=== PATIENT | male | born 1995 ===

== ENCOUNTER 2021-11-03 02:02 | Emergency (ER) | payer SELFPAY ==
--- OUTSIDE RECORDS SUMMARY | 2021-11-03 02:06 | XMS REPORT | Continuity of Care Document ---
:1995 Author Organization [facility] t Address [address] [place] [address] Care Team Providers Name Role Phone [facility] Primary Care Physician Unavailable CARROLL Attending Clinician Unavailable LOUIE STEVENS Attending Clinician Unavailable Louie Stevens DO Attending Clinician CARROLL Admitting Clinician Unavailable Payers Payer Name Policy Type Policy Number Effective Date Expiration Date [facility] [place] PENDING PENDING 2021-01-10 00:00:00 Problems This patient has no known problems. Allergies, Adverse Reactions, Alerts Allergy Allergy Status Severity Reaction(s) Onset Inactive Treating Comm ents Source Name Type Date Date Clinician Unable DA Active U 2020-03 [facility] to 04-28 Assess 00:00: 00 codeine DA Active U Rash 2020-03 [facility] 04-28 00:00: 00 CODEINE DRUG Active Dizziness 2020-03 [facility] 1-12 ity of 00:00: [place] 00 Medical Branch Codeine Propensi Active Dizziness 2020-03 Univ ers ty to 12 ity of adverse 00:00: [place] reaction 00 Medical s Branch codeine DA Active U Hives [facility] 8-03 00:00: 00 codeine DA [facility] 00 NO KNOWN Drug Active Univers ALLERGIE Class ity of S [facility] Social History Social Habit Start Date Stop Date Quantity Comments Source Exposure to Not sure [facility] SARS-CoV-2 (event) Medica l Branch Sex Assigned At [birth year] [facility] 00:00:00 00:00:00 Medical Branch Smoking Status Start Date Stop Date Source Unknown if ever smoked [facility] Medications This patient has no known medications. Immunizations Ordered Filled Immunization Date Status Comments [facility] e Immunization Name Name PPD (TB) 2002-12-11 Completed [facility] 00:00:00 [facility] Vital Signs Vital Name Observation Time Observation Value Comments Source Systolic blood 2021-01-10 15:29:00 158 mm[Hg] [facility]iver [facility] Diastolic blood 2021-01-10 15:29:00 94 mm[Hg] [facility] Heart rate 2021-01-10 15:29:00 101 /min [facility] Body temperature 2021-01-10 15:29:00 36.78 [facility] Respiratory rate 2021-01-10 15:29:00 18 /min [facility] Body weight 2021-01-10 15:29:00 136.079 kg [facility] Oxygen saturation in 2021-01-10 15:29:00 98 /min [facility] Arterial blood by [facility] Pulse oximetry Branch 02 Sat by Pulse 2020-04-02 19:10:17 97 /min Oximetry Body Mass Index 2020-04-02 19:10:17 42.1 Height 2020-04-02 19:10:17 180.34\S\71 Pulse Rate 2020-04-02 19:10:17 106 /min Respiratory Rate 2020-04-02 19:10:17 18 /min Temperature 2020-04-02 19:10:17 36.8\S\98.2 Weight 2020-04-02 19:10:17 117999.895\S\4832 Weight Measurement 2020-04-02 19:10:17 Estimated by Method Patient Respiratory 2020-04-02 19:10:17 No respiratory distress /min Respiratory 2020-04-02 18:29:56 No respiratory distress /min 02 Sat by Pulse 2020-04-02 18:29:56 97 /min Oximetry Body Mass Index 2020-04-02 18:29:56 42.1 Height 2020-04-02 18:29:56 180.34\S\71 Pulse Rate 2020-04-02 18:29:56 106 /min Respiratory Rate 2020-04-02 18:29:56 18 /min Temperature 2020-04-02 18:29:56 36.8\S\98.2 Weight 2020-04-02 18:29:56 495723.895\S\4832 Weight Measurement 2020-04-02 18:29:56 Estimated by Method Patient Respiratory 2020-04-02 18:29:25 No respiratory distress /min 02 Sat by Pulse 2020-04-02 18:29:25 97 /min Oximetry Body Mass Index 2020-04-02 18:29:25 42.1 Height 2020-04-02 18:29:25 180.34\S\71 Pulse Rate 2020-04-02 18:29:25 106 /min Respiratory Rate 2020-04-02 18:29:25 18 /min Temperature 2020-04-02 18:29:25 36.8\S\98.2 Weight 2020-04-02 18:29:25 842467.895\S\4832 Weight Measurement 2020-04-02 18:29:25 Estimated by Method Patient Respiratory 2020-04-02 16:30:32 No respiratory distress /min 02 Sat by Pulse 2020-04-02 16:30:32 97 /min Oximetry Body Mass Index 2020-04-02 16:30:32 42.1 Height 2020-04-02 16:30:32 180.34\S\71 Pulse Rate 2020-04-02 16:30:32 106 /min Respiratory Rate 2020-04-02 16:30:32 18 /min Temperature 2020-04-02 16:30:32 36.8\S\98.2 Weight 2020-04-02 16:30:32 302274.895\S\4832 Weight Measurement 2020-04-02 16:30:32 Estimated by Method Patient Respiratory 2020-04-02 16:00:18 No respiratory distress /min 02 Sat by Pulse 2020-04-02 16:00:18 97 /min Oximetry Body Mass Index 2020-04-02 16:00:18 42.1 Height 2020-04-02 16:00:18 180.34\S\71 Pulse Rate 2020-04-02 16:00:18 106 /min Respiratory Rate 2020-04-02 16:00:18 18 /min Temperature 2020-04-02 16:00:18 36.8\S\98.2 Weight 2020-04-02 16:00:18 078670.895\S\4832 Weight Measurement 2020-04-02 16:00:18 Estimated by Method Patient 02 Sat by Pulse 2020-04-02 15:13:14 97 /min Oximetry Body Mass Index 2020-04-02 15:13:14 42.1 Height 2020-04-02 15:13:14 180.34\S\71 Pulse Rate 2020-04-02 15:13:14 106 /min Respiratory Rate 2020-04-02 15:13:14 18 /min Temperature 2020-04-02 15:13:14 36.8\S\98.2 Weight 2020-04-02 15:13:14 481275.895\S\4832 Weight Measurement 2020-04-02 15:13:14 Estimated by Method Patient 02 Sat by Pulse 2020-04-02 15:11:41 97 /min Oximetry Body Mass Index 2020-04-02 15:11:41 42.1 Height 2020-04-02 15:11:41 180.34\S\71 Pulse Rate 2020-04-02 15:11:41 106 /min Respiratory Rate 2020-04-02 15:11:41 18 /min Temperature 2020-04-02 15:11:41 36.8\S\98.2 Weight 2020-04-02 15:11:41 318487.895\S\4832 Weight Measurement 2020-04-02 15:11:41 Estimated by Method Patient WEIGHT 2020-04-02 15:07:00 136.520770 kg HEIGHT 2020-04-02 15:07:00 180.34 cm Procedures Procedure Date / Time Performed Performing Clinician [facility] e NOTICE OF PRIVACY 2021-01-10 15:25:17 Doctor Unassigned, No Univ [facility] PRACTICES Name Medical Branch Encounters Start End Encounter Admission Attending Care Care Encounter Source Date/Time Date/Time Type Type Clinicians Facility Department ID 2021-02-25 Inpatient [facility] [id number] [facility] 13:20:00 49 2020-10-01 Inpatient [facility] [id number] [facility] 14:41:00 66 2020-10-01 Inpatient [facility] [id number] [facility] 14:41:00 66 2020-04-02 Inpatient [facility] [id number] [facility] 14:03:00 77 2021-09-09 2021-09-09 Outpatient [facility] [address] 02:47:00 02:47:00 H 0712 da [facility] Outre h Program 2021-02-25 2021-02-25 Emergency [facility] [id number] [facility] 13:29:00 13:29:00 49 2021-01-10 2021-01-10 Emergency X [facility] ERT [id number] Univers 09:31:00 10:11:00 LOUIE simon [facility] 2021-01-10 2021-01-10 Emergency , [facility] [id number] Univers 09:31:00 10:11:00 Louie BAZAN [id number] i [facility] [id number] [facility] [id number] [place] [address] Branch 2020-04-02 2020-04-02 Emergency [facility] [id number] [facility] 14:03:00 14:03:00 77 Results Test Description Test Time Test Comments Results Result Comments Source UA, Urinalysis Macroscopic 2021-02-25 14:25:00 Test Item Value Reference Range Interpretation Comme nts Color,Urine (test code = UCOL) Yellow Yellow Clarity,Urine (test code = UCLAR) Clear Clear PH,Urine (test code = UPH.XX) 6.0 5.5-8.5 Specific Stodd[place],Urine (test code = USG) 1.030 1.005-1.030 N Blood,Urine (test code = UBLD) Negative cells/uL Negative Protein,Urine (test code = UPRO) Negative mg/dL Negative Glucose,Urine (UA) (test code = UGLU) Negative mg/dL Negative Ketones,Urine (test code = UKET) Negative mg/dL Negative Nitrate,Urine (test code = UNIT) Negative Negative Bilirubin,Urine (test code = UBIL) Negative mg/dL Negative Urobilinogen,Urine (test code = UURO) 0.2 mg/dL Negative Leukocyte Esterase,Urine (test code = ULEU) Negative cells/uL Negat destin Drug Screen,[id number] 14:25:00 Test Item Value Reference Range Interpretation Comments PCP Phencyclidine Screen,Urine (test Negative Negative code = PCPU) Amphetamine Screen,Urine (test code Negative Negative = AMPU) Methadone Screen,Urine (test code = Negative Negative METHU) Opiate Screen,Urine (test code = Negative Negative UOPIS) Barbituates Screen,Urine (test code Negative Negative = BARBU) Benzodiazepines Screen,Urine (test Negative Negative code = UBENZS) Cocaine Screen,Urine (test code = Negative Negative UCOCS) Cannabinoid Screen,Urine (test code Positive Negative A = UTHCS) Propoxyphene Screen, Urine (test Negative Negative code = UPROP) Comprehensive Metabolic [id number] 14:10:00 Test Item Value Reference Range Interpretation Comments SODIUM (test code = NA) 140.0 mmol/L 136.0-145.0 N Potassium,K (test code = K) 4.7 mmol/L 3.0-5.1 N Chloride (test code = CL) 110 mmol/L 98-107 H Carbon Dioxide (test code = 25 mmol/L 20-31 N CO2) Anion Gap (test code = GAP) 5 mmol/L 5-15 N Blood Urea Nitrogen (test code 10 mg/dL 9-23 N = BUN) Creatinine (test code = CREATT) 0.71 mg/dL 0.55-1.02 N Creatinine Clr Calc Pharmacy 334.18 mL/min (test code = CRCLPHA) Estimated GFR ( Mary > 60 mL/min/1.73m2 (test code = EGFRAA) Estimated GFR (Non Afr Mary > 60 mL/min/1.73m2 (test code = EGFRNAA) BUN/Creatinine Ratio (test code 14 ratio 10-20 N = BCRATIO) Glucose (test code = GLU) 122 mg/dL 74-106 H Osmolality,Calculated (test 289.5 code = OSMOC) Calcium (test code = CA) 9.3 mg/dL 8.3-10.6 N Bilirubin,Total (test code = 0.3 mg/dL 0.2-1.1 N BILIT) Aspartate Amino Transferase 10 U/L 0-34 N (test code = AST) Alanine Aminotransferase (test 18 U/L 10-49 N code = ALT) Total Protein (test code = TP) 7.1 g/dL 5.7-8.2 N Albumin Level (test code = ALB) 4.4 g/dL 3.2-4.8 N Globulin (test code = GLOB) 2.7 mg/dL 2.3-3.5 N Albumin/Globulin Ratio (test 1.6 ratio 0.8-2.0 N code = AGRATIO) Alkaline Phosphatase (test code 92 U/L 46-116 N = ALP) Ethanol [id number] 14:10:00 Test Item Value Reference Range Interpretation Comments Ethanol (test code < 3 mg/dL The pharm acological = ETOH) response to blo od alcohol levels mayvary from individual to i ndividual. The fatal jaimee ntrationhas been reported t o be >400mg/dL. Complete Blood Count Auto [id number] 14:10:00 Test Item Value Reference Range Interpretation Comments White Blood Count (test code = 10.2 x10 3/uL 4.4-10.5 N WBCT) Red Blood Count (test code = 5.32 x10 6/uL 4.10-5.70 N RBC) Hemoglobin (test code = HGBT) 16.4 g/dL 13.4-17.4 N Hematocrit (test code = HCTT) 49.9 % 38.7-52.0 N Mean Corpuscular Volume (test 93.80 fL 80.00-100.00 N code = MCV) Mean Corpuscular Hemoglobin 30.8 pg 27.0-32.5 N (test code = MCH) Mean Corpuscular HGB Conc 32.90 g/dL 32.00-37.50 N (test code = MCHC) RDW Coefficient of Variation 13.6 % 11.5-14.5 N (test code = RDWCV) Platelet Count (test code = 277.0 x10 3/uL 140.0-440.0 N PLTT) Mean Platelet Volume (test 11.5 fL code = MPV) Immature Granulocytes % (Auto) 0.4 % 0.0-5.0 N (test code = IMMGRAN%) Neutrophils % (Auto) (test 65.9 % 36.0-70.0 N code = NE%) Lymphocytes % (Auto) (test 24.7 % 12.0-44.0 N code = LY%) Monocytes % (Auto) (test code 6.1 % 0.0-11.0 N = MO%) Eosinophils % (Auto) (test 2.3 % 0.0-7.0 N code = EO%) Basophils % (Auto) (test code 0.6 % 0.0-2.0 N = BA%) Immature Granulocytes # (Auto) 0.04 x10 3/uL (test code = IMMGRAN#) Neutrophils # (Auto) (test 6.7 x10 3/uL 1.6-7.4 N code = NE#) Lymphocytes # (Auto) (test 2.52 x10 3/uL 0.50-4.60 N code = LY#) Monocytes # (Auto) (test code 0.62 x10 3/uL 0.00-1.20 N = MO#) Eosinophils # (Auto) (test 0.23 x10 3/uL 0.00-0.74 N code = EO#) Basophils # (Auto) (test code 0.06 x10 3/uL 0.00-0.21 N = BA#) nRBC Abs (test code = NRBCA) 0 nRBC Pct (test code = NRBCP) 0 % Coronavirus PCR, COVID19 [id number] 14:03:00 Test Item Value Reference Range Interpretation Comments Coronavirus PCR, For use under Emergency COVID19 Rapid (test Use Authorization (EUA) code = SARSCOV2) only. Coronavirus PCR, Reference Range: COVID19 Rapid (test Negative code = PKZFDDP52.1) SARS-CoV-2 PCR Result: Negative by RT-PCR (test code = SARS-CoV-2 PCR Result:) COVID-19 Status: AsymptomaticDrug Screen,[id number] 15:25:00 Test Item Value Reference Range Interpretation Comments PCP Phencyclidine Screen,Urine (test Negative Negative code = PCPU) Amphetamine Screen,Urine (test code Negative Negative = AMPU) Methadone Screen,Urine (test code = Negative Negative METHU) Opiate Screen,Urine (test code = Negative Negative UOPIS) Barbituates Screen,Urine (test code Negative Negative = BARBU) Benzodiazepines Screen,Urine (test Negative Negative code = UBENZS) Cocaine Screen,Urine (test code = Negative Negative UCOCS) Cannabinoid Screen,Urine (test code Positive Negative A = UTHCS) Propoxyphene Screen, Urine (test Negative Negative code = UPROP) Complete Blood Count Auto [id number] 15:03:00 Test Item Value Reference Range Interpretation Comments White Blood Count (test code = 15.3 x10 3/uL 4.4-10.5 H WBCT) Red Blood Count (test code = 5.33 x10 6/uL 4.10-5.70 N RBC) Hemoglobin (test code = HGBT) 16.4 g/dL 13.4-17.4 N Hematocrit (test code = HCTT) 50.6 % 38.7-52.0 N Mean Corpuscular Volume (test 94.90 fL 80.00-100.00 N code = MCV) Mean Corpuscular Hemoglobin 30.8 pg 27.0-32.5 N (test code = MCH) Mean Corpuscular HGB Conc 32.40 g/dL 32.00-37.50 N (test code = MCHC) RDW Coefficient of Variation 13.2 % 11.5-14.5 N (test code = RDWCV) Platelet Count (test code = 269.0 x10 3/uL 140.0-440.0 N PLTT) Mean Platelet Volume (test 11.5 fL code = MPV) Immature Granulocytes % (Auto) 0.5 % 0.0-5.0 N (test code = IMMGRAN%) Neutrophils % (Auto) (test 83.7 % 36.0-70.0 H code = NE%) Lymphocytes % (Auto) (test 10.7 % 12.0-44.0 L code = LY%) Monocytes % (Auto) (test code 4.3 % 0.0-11.0 N = MO%) Eosinophils % (Auto) (test 0.5 % 0.0-7.0 N code = EO%) Basophils % (Auto) (test code 0.3 % 0.0-2.0 N = BA%) Immature Granulocytes # (Auto) 0.07 x10 3/uL (test code = IMMGRAN#) Neutrophils # (Auto) (test 12.8 x10 3/uL 1.6-7.4 H code = NE#) Lymphocytes # (Auto) (test 1.64 x10 3/uL 0.50-4.60 N code = LY#) Monocytes # (Auto) (test code 0.66 x10 3/uL 0.00-1.20 N = MO#) Eosinophils # (Auto) (test 0.08 x10 3/uL 0.00-0.74 N code = EO#) Basophils # (Auto) (test code 0.04 x10 3/uL 0.00-0.21 N = BA#) nRBC Abs (test code = NRBCA) 0 nRBC Pct (test code = NRBCP) 0 % Comprehensive Metabolic [id number] 15:03:00 Test Item Value Reference Range Interpretation Comments SODIUM (test code = NA) 139.0 mmol/L 136.0-145.0 N Potassium,K (test code = K) 5.0 mmol/L 3.0-5.1 N Chloride (test code = CL) 114 mmol/L 98-107 H Carbon Dioxide (test code = 22 mmol/L 20-31 N CO2) Anion Gap (test code = GAP) 3 mmol/L 5-15 L Blood Urea Nitrogen (test code 10 mg/dL 9-23 N = BUN) Creatinine (test code = CREATT) 0.78 mg/dL 0.55-1.02 N Creatinine Clr Calc Pharmacy 202.25 mL/min (test code = CRCLPHA) Estimated GFR ( Mary > 60 mL/min/1.73m2 (test code = EGFRAA) Estimated GFR (Non Afr Mary > 60 mL/min/1.73m2 (test code = EGFRNAA) BUN/Creatinine Ratio (test code 13 ratio 10-20 N = BCRATIO) Glucose (test code = GLU) 101 mg/dL 74-106 N Osmolality,Calculated (test 286.5 code = OSMOC) Calcium (test code = CA) 9.8 mg/dL 8.3-10.6 N Bilirubin,Total (test code = 0.3 mg/dL 0.2-1.1 N BILIT) Aspartate Amino Transferase 19 U/L 0-34 N (test code = AST) Alanine Aminotransferase (test 27 U/L 10-49 N code = ALT) Total Protein (test code = TP) 7.7 g/dL 5.7-8.2 N Albumin Level (test code = ALB) 4.9 g/dL 3.2-4.8 H Globulin (test code = GLOB) 2.8 mg/dL 2.3-3.5 N Albumin/Globulin Ratio (test 1.8 ratio 0.8-2.0 N code = AGRATIO) Alkaline Phosphatase (test code 99 U/L 46-116 N = ALP) Ethanol [id number] 15:03:00 Test Item Value Reference Range Interpretation Comments Ethanol (test code = ETOH) < 3 mg/dL Coronavirus PCR, COVID19 [id number] 14:58:00 Test Item Value Reference Range Interpretation Comments Coronavirus PCR, For use under Emergency COVID19 Rapid (test Use Authorization (EUA) code = SARSCOV2) only. Coronavirus PCR, Reference Range: COVID19 Rapid (test Negative code = AFJIIQF01.1) SARS-CoV-2 PCR Result: Negative by PCR (test code = SARS-CoV-2 PCR Result:) COVID-19 Status: MmzjjwomsvcrWwsg-OgE-2/FLU A/B RSV [id number] 16:05:00 Test Item Value Reference Range Interpretation Comments Sars-CoV-2/FLU A/B For use under Emergency RSV PCR (test code = Use Authorization (EUA) SARSFLURSVPCR) only. Sars-CoV-2/FLU A/B Reference Range: RSV PCR (test code = Negative SARSFLURSVPCR1.1) Influenza A PCR: Negative by Nucleic Acid (test code = Amplification Influenza A PCR:) Influenza B PCR: Negative by Nucleic Acid (test code = Amplification Influenza B PCR:) RSV PCR Result: (test Negative by Nucleic Acid code = RSV PCR Amplification Result:) SARS-CoV-2 PCR Negative by PCR Result: (test code = SARS-CoV-2 PCR Result:) Complete Blood Count Auto [id number] 16:00:00 Test Item Value Reference Range Interpretation Comments White Blood Count (test code = 12.7 x10 3/uL 4.4-10.5 H WBCT) Red Blood Count (test code = 5.15 x10 6/uL 4.10-5.70 N RBC) Hemoglobin (test code = HGBT) 15.9 g/dL 13.4-17.4 N Hematocrit (test code = HCTT) 50.3 % 38.7-52.0 N Mean Corpuscular Volume (test 97.70 fL 80.00-100.00 N code = MCV) Mean Corpuscular Hemoglobin 30.9 pg 27.0-32.5 N (test code = MCH) Mean Corpuscular HGB Conc 31.60 g/dL 32.00-37.50 L (test code = MCHC) RDW Coefficient of Variation 13.0 % 11.5-14.5 N (test code = RDWCV) Platelet Count (test code = 302.0 x10 3/uL 140.0-440.0 N PLTT) Mean Platelet Volume (test 11.7 fL code = MPV) Immature Granulocytes % (Auto) 0.4 % 0.0-5.0 N (test code = IMMGRAN%) Neutrophils % (Auto) (test 68.6 % 36.0-70.0 N code = NE%) Lymphocytes % (Auto) (test 22.8 % 12.0-44.0 N code = LY%) Monocytes % (Auto) (test code 6.1 % 0.0-11.0 N = MO%) Eosinophils % (Auto) (test 1.5 % 0.0-7.0 N code = EO%) Basophils % (Auto) (test code 0.6 % 0.0-2.0 N = BA%) Immature Granulocytes # (Auto) 0.05 x10 3/uL (test code = IMMGRAN#) Neutrophils # (Auto) (test 8.7 x10 3/uL 1.6-7.4 H code = NE#) Lymphocytes # (Auto) (test 2.89 x10 3/uL 0.50-4.60 N code = LY#) Monocytes # (Auto) (test code 0.77 x10 3/uL 0.00-1.20 N = MO#) Eosinophils # (Auto) (test 0.19 x10 3/uL 0.00-0.74 N code = EO#) Basophils # (Auto) (test code 0.07 x10 3/uL 0.00-0.21 N = BA#) nRBC Abs (test code = NRBCA) 0 nRBC Pct (test code = NRBCP) 0 % Comprehensive Metabolic [id number] 16:00:00 Test Item Value Reference Range Interpretation Comments SODIUM (test code = NA) 139.0 mmol/L 136.0-145.0 N Potassium,K (test code = K) 4.4 mmol/L 3.0-5.1 N Chloride (test code = CL) 106 mmol/L 98-107 N Carbon Dioxide (test code = 23 mmol/L 20-31 N CO2) Anion Gap (test code = GAP) 10 mmol/L 5-15 N Blood Urea Nitrogen (test code 12 mg/dL 9-23 N = BUN) Creatinine (test code = CREATT) 0.83 mg/dL 0.55-1.02 N Creatinine Clr Calc Pharmacy 189.04 mL/min (test code = CRCLPHA) Estimated GFR ( Mary > 60 mL/min/1.73m2 (test code = EGFRAA) Estimated GFR (Non Afr Mary > 60 mL/min/1.73m2 (test code = EGFRNAA) BUN/Creatinine Ratio (test code 14 ratio 10-20 N = BCRATIO) Glucose (test code = GLU) 108 mg/dL 74-106 H Osmolality,Calculated (test 288.2 code = OSMOC) Calcium (test code = CA) 9.4 mg/dL 8.3-10.6 N Bilirubin,Total (test code = 0.2 mg/dL 0.2-1.1 N BILIT) Aspartate Amino Transferase 21 U/L 0-34 N (test code = AST) Alanine Aminotransferase (test 26 U/L 10-49 N code = ALT) Total Protein (test code = TP) 7.2 g/dL 5.7-8.2 N Albumin Level (test code = ALB) 4.9 g/dL 3.2-4.8 H Globulin (test code = GLOB) 2.3 mg/dL 2.3-3.5 N Albumin/Globulin Ratio (test 2.1 ratio 0.8-2.0 H code = AGRATIO) Alkaline Phosphatase (test code 98 U/L 46-116 N = ALP) Ethanol [id number] 16:00:00 Test Item Value Reference Range Interpretation Comments Ethanol (test code = ETOH) 7 mg/dL Drug Screen,[id number] 15:45:00 Test Item Value Reference Range Interpretation Comments PCP Phencyclidine Negative Negative Screen,Urine (test code = PCPU) Amphetamine Positive Negative A Confirmation by GC/MS Screen,Urine (test code not routinely = AMPU) performed. Ifconfirmation is required, an or nilay must be placed. Methadone Screen,Urine Negative Negative (test code = METHU) Opiate Screen,Urine Negative Negative (test code = UOPIS) Barbituates Negative Negative Screen,Urine (test code = BARBU) Benzodiazepines Negative Negative Screen,Urine (test code = UBENZS) Cocaine Screen,Urine Negative Negative (test code = UCOCS) Cannabinoid Positive Negative A Screen,Urine (test code = UTHCS) Propoxyphene Screen, Negative Negative Urine (test code = UPROP) UA, Urinalysis Rflx Cult/[id number] 15:45:00 Test Item Value Reference Range Interpretation Comments Color,Urine (test code = Yellow Y UCOL) Clarity,Urine (test code = Slightly Cloudy Clear A UCLAR) PH,Urine (test code = UPH.XX) 5.5 5.5-8.5 Specific Stoddard,Urine (test 1.030 1.005-1.030 N code = USG) Blood,Urine (test code = Trace cells/uL Negative A UBLD) Protein,Urine (test code = Trace mg/dL Negative A UPRO) Glucose,Urine (UA) (test code 100 mg/dL Negative A = UGLU) Ketones,Urine (test code = Trace mg/dL Negative A UKET) Nitrate,Urine (test code = Negative Negative UNIT) Bilirubin,Urine (test code = Negative mg/dL Negative UBIL) Urobilinogen,Urine (test code 0.2 mg/dL Negative = UURO) Leukocyte Esterase,Urine Trace cells/uL Negative A (test code = ULEU) Urine [id number] 15:45:00 Test Item Value Reference Range Interpretation Comments RBC,Urine (test code = URBC.XX) 11-19 /HPF None Seen A WBC,Urine (test code = UWBC.XX) 2-5 /HPF None Seen Squamous Epithelial Cell,Urine 6-10 /HPF None Seen A (test code = USQEPI.XX) Bacteria,Urine (test code = UBACT) 1+ /HPF None Seen A Mucus,Urine (test code = UMUC) 1+ /LPF None Seen A
[2021-11-03 03:11] LABS: Urine Blood Negative (Negative); Urine Glucose Negative (Negative); Urine Protein Negative (Negative); Urine Specific Gravity >=1.030 (1.005-1.030); Urine pH 5.5 (5.0-7.0)
--- NOTE | 2021-11-03 03:13 | ER ---
Nurse's Notes [facility] Name: Munir Hayes Age: 26 yrs Sex: Male : 1995 Arrival Date: 11/03/2021 Time: 02:03 Bed 8 Private MD: Diagnosis: Dysuria Presentation: 11/03 02:04 Chief complaint: EMS states: Headache , sore throat and burning sensation on urination tw5 since a week. Coronavirus screen: Vaccine status: Patient reports being unvaccinated. Ebola Screen: No symptoms or risks identified at this time. Initial Sepsis Screen: Does the patient meet any 2 criteria? No. Patient's initial sepsis screen is negative. Does the patient have a suspected source of infection? No. Patient's initial sepsis screen is negative. Risk Assessment: Do you want to hurt yourself or someone else? Patient reports no desire to harm self or others. Onset of symptoms was October 28, 2021. 02:04 Method Of Arrival: EMS: [facility] tw5 02:04 Acuity: DORIS 3 tw5 Triage Assessment: 02:07 General: Appears in no apparent distress. Behavior is appropriate for age. Pain: tw5 Complains of pain in headache Pain currently is 3 out of 10 on a pain scale. at worst was 8 out of 10 on a pain scale. level that patient reports is acceptable is 5 out of 10 on a pain scale. Quality of pain is described as throbbing, Pain began 1 week ago. EENT:. Neuro: Level of Consciousness is awake, alert, Oriented to person, place, time, situation. Respiratory: Respiratory effort is even, unlabored, Respiratory pattern is regular, symmetrical. : Reports burning with urination. Historical: - Allergies: 02:07 Codeine; tw5 - PMHx: 02:07 Depression; tw5 - Immunization history:: Client reports having NOT received the Covid vaccine. - Social history:: Smoking status: Patient reports the use of cigarette tobacco products, smokes two packs cigarettes per day. - Family history:: not pertinent. Screenin:09 Abuse screen: Denies threats or abuse. Nutritional screening: No deficits noted. tw5 Tuberculosis screening: No symptoms or risk factors identified. Fall Risk None identified. Assessment: 03:25 Reassessment: Patient states feeling better. Patient states symptoms have improved. ke1 Vital Signs: 02:04 BP 154 / 92; Pulse 98; Resp 17; Temp 99.2; Pulse Ox 99% on R/A; Weight 136.08 kg; tw5 Height 5 ft. 1 in. (154.94 cm); Pain 3/10; 02:04 Body Mass Index 56.68 (136.08 kg, 154.94 cm) tw5 ED Course: 02:03 Patient arrived in ED. [facility] 02:03 Fani Rojo is Primary Nurse. 5 02:07 Triage completed. tw5 02:07 Gregg Saxena MD is Attending Physician. [facility] 02:09 Arm band placed on. tw5 02:09 Bed in low position. Call light in reach. tw5 03:26 No provider procedures requiring assistance completed. Patient did not have IV access ke1 during this emergency room visit. Administered Medications: 03:19 Drug: Zithromax (azithromycin) 1 grams Route: PO; ke1 03:26 Follow up: Response: Medication administered at discharge. ke1 03:20 Drug: Rocephin (cefTRIAXone) 1 grams Route: IM; Site: right deltoid; ke1 03:26 Follow up: Response: Medication administered at discharge. ke1 Medication: 03:27 VIS not applicable for this client. ke1 Outcome: 03:12 Discharge ordered by . [facility] 03:26 Discharged to home ambulatory. ke1 03:26 Condition: good 03:26 Discharge instructions given to patient. 03:27 Patient left the ED. ke1 Signatures: Gregg Saxena MD MD cha Martinez, [facility] Fani Rojo [facility] Emanuel Headley RN RN ke1
--- NOTE | 2021-11-03 03:13 | EDPHYS ---
Physician Documentation [facility] Name: Munir Hayes Age: 26 yrs Sex: Male : 1995 Arrival Date: 11/03/2021 Time: 02:03 Bed 8 Private MD: LÁZARO Physician Gregg Saxena HPI: 11/03 03:09 This 26 yrs old Male presents to ER via EMS with complaints of Urinary sofía Problem. 03:09 The patient presents with tenderness, urinary symptoms, dribbling of urine, dysuria, sofía urinary frequency. Onset: The symptoms/episode began/occurred 3 day(s) ago. Modifying factors: The symptoms are alleviated by nothing, the symptoms are aggravated by nothing. Associated signs and symptoms: Pertinent positives: fever. Severity of symptoms: At their worst the symptoms were mild, in the emergency department the symptoms are unchanged. The patient has not experienced similar symptoms in the past. Historical: - Allergies: 02:07 Codeine; tw5 - PMHx: 02:07 Depression; tw5 - Immunization history:: Client reports having NOT received the Covid vaccine. - Social history:: Smoking status: Patient reports the use of cigarette tobacco products, smokes two packs cigarettes per day. - Family history:: not pertinent. ROS: 03:09 Constitutional: Negative for fever, chills, and weight loss, Eyes: Negative for injury, sofía pain, redness, and discharge, ENT: Negative for injury, pain, and discharge, Neck: Negative for injury, pain, and swelling, Cardiovascular: Negative for chest pain, palpitations, and edema, Respiratory: Negative for shortness of breath, cough, wheezing, and pleuritic chest pain, Abdomen/GI: Negative for abdominal pain, nausea, vomiting, diarrhea, and constipation, Back: Negative for injury and pain, MS/Extremity: Negative for injury and deformity, Skin: Negative for injury, rash, and discoloration, Neuro: Negative for headache, weakness, numbness, tingling, and seizure, Psych: Negative for depression, anxiety, suicide ideation, homicidal ideation, and hallucinations, Allergy/Immunology: Negative for hives, rash, and allergies, Endocrine: Negative for neck swelling, polydipsia, polyuria, polyphagia, and marked weight changes, Hematologic/Lymphatic: Negative for swollen nodes, abnormal bleeding, and unusual bruising. 03:09 : Positive for injury or acute deformity, flank pain, hematuria, burning with urination. Exam: 03:09 Constitutional: This is a well developed, well nourished patient who is awake, alert, sofía and in no acute distress. Head/Face: Normocephalic, atraumatic. Eyes: Pupils equal round and reactive to light, extra-ocular motions intact. Lids and lashes normal. Conjunctiva and sclera are non-icteric and not injected. Cornea within normal limits. Periorbital areas with no swelling, redness, or edema. ENT: Nares patent. No nasal discharge, no septal abnormalities noted. Tympanic membranes are normal and external auditory canals are clear. Oropharynx with no redness, swelling, or masses, exudates, or evidence of obstruction, uvula midline. Mucous membranes moist. Neck: Trachea midline, no thyromegaly or masses palpated, and no cervical lymphadenopathy. Supple, full range of motion without nuchal rigidity, or vertebral point tenderness. No Meningismus. Chest/axilla: Normal chest wall appearance and motion. Nontender with no deformity. No lesions are appreciated. Cardiovascular: Regular rate and rhythm with a normal S1 and S2. No gallops, murmurs, or rubs. Normal PMI, no JVD. No pulse deficits. Respiratory: Lungs have equal breath sounds bilaterally, clear to auscultation and percussion. No rales, rhonchi or wheezes noted. No increased work of breathing, no retractions or nasal flaring. Abdomen/GI: Soft, non-tender, with normal bowel sounds. No distension or tympany. No guarding or rebound. No evidence of tenderness throughout. Back: No spinal tenderness. No costovertebral tenderness. Full range of motion. Skin: Warm, dry with normal turgor. Normal color with no rashes, no lesions, and no evidence of cellulitis. MS/ Extremity: Pulses equal, no cyanosis. Neurovascular intact. Full, normal range of motion. Neuro: Awake and alert, GCS 15, oriented to person, place, time, and situation. Cranial nerves II-XII grossly intact. Motor strength 5/5 in all extremities. Sensory grossly intact. Cerebellar exam normal. Normal gait. Psych: Awake, alert, with orientation to person, place and time. Behavior, mood, and affect are within normal limits. 03:09 : CVA tenderness, is absent, Male external genitalia: normal, Bladder: is normal, Sexual behavior: the patient is sexually active, and reports multiple partners. Vital Signs: 02:04 BP 154 / 92; Pulse 98; Resp 17; Temp 99.2; Pulse Ox 99% on R/A; Weight 136.08 kg; tw5 Height 5 ft. 1 in. (154.94 cm); Pain 3/10; 02:04 Body Mass Index 56.68 (136.08 kg, 154.94 cm) tw5 MDM: 02:07 Patient medically screened. [facility] 11/03 03:04 Order name: Urine Culture [facility] 11/03 03:11 Order name: Urine Dipstick-Ancillary [facility] 11/03 03:04 Order name: Urine Dipstick-Ancillary (obtain specimen); Complete Time: 03:20 sofía Administered Medications: 03:19 Drug: Zithromax (azithromycin) 1 grams Route: PO; ke1 03:26 Follow up: Response: Medication administered at discharge. ke1 03:20 Drug: Rocephin (cefTRIAXone) 1 grams Route: IM; Site: right deltoid; ke1 03:26 Follow up: Response: Medication administered at discharge. ke1 Disposition Summary: 11/03/21 03:12 Discharge Ordered Location: Home [facility] Problem: new [facility] Symptoms: have improved sofía Condition: Stable sofía Diagnosis - Dysuria sofía Followup: sofía - With: Private Physician - When: 2 - 3 days - Reason: Recheck today's complaints, Continuance of care, Re-evaluation by your physician Discharge Instructions: - Discharge Summary Sheet sofía - Dysuria sofía Forms: - Medication Reconciliation Form [facility] - Thank You Letter sofía - Antibiotic Education sofía - Prescription Opioid Use sofía Prescriptions: - Doxycycline Hyclate 100 mg Oral Tablet - take 1 tablet by ORAL route every 12 hours; 20 tablet; Refills: 0, Product sofía Selection Permitted Signatures: Dispatcher [employer] EDGregg Obando MD MD cha Wood, Tiffany tw5 Emanuel Headley RN RN ke1
[2021-11-03] MEDS ORDERED: CEFTRIAXONE 1000 MG/VIAL ONE (03:21)
[2021-11-03] MEDS ORDERED: AZITHROMYCIN 250 MG TAB ONE (03:22)
[2021-11-03] MEDS ORDERED: WATER FOR INJ,STERILE 10 ML ONE (03:24)
[2021-11-03 04:09] VITALS: BP 154/92; TEMP 99.2; O2SAT 99
== END 2021-11-03 03:27 | disposition home or self-care (01) ==
LOC: ER 02:02
DX: R30.0 Dysuria (principal); F17.210 Nicotine dependence, cigarettes, uncomplicated; Z88.5 Allergy status to narcotic agent
CPT/HCPCS: 81003; 87086; 87088; 96372; 99283

== ENCOUNTER 2021-12-15 06:57 | Emergency (ER) | payer SELFPAY ==
--- OUTSIDE RECORDS SUMMARY | 2021-12-15 07:14 | XMS REPORT | Continuity of Care Document ---
:1995 Author Organization [facility] t Address [address] [place] [address] Care Team Providers Name Role Phone [facility] Primary Care Physician Unavailable CARROLL Attending Clinician Unavailable LOUIE STEVENS Attending Clinician Unavailable Louie Stevens DO Attending Clinician CARROLL Admitting Clinician Unavailable Payers Payer Name Policy Type Policy Number Effective Date Expiration Date S maribell MEDICAID PENDING PENDING 2021 00:00:00 Problems This patient has no known problems. Allergies, Adverse Reactions, Alerts Allergy Allergy Status Severity Reaction(s) Onset Inactive Treating Comm ents Source Name Type Date Date Clinician Unable DA Active U 2020-03 [facility] to 04-28 Assess 00:00: 00 codeine DA Active U Rash 2020-03 [facility] 04-28 00:00: 00 Codeine Propensi Active Dizziness 2020-03 Univ ers ty to 03-12 ity of adverse 00:00: [place] reaction 00 Medical s Branch CODEINE DRUG Active Dizziness 2020-03 Univer s INGREDI 03-12 ity of 00:00: [place] [id number] Medical Branch codeine DA Active U Hives [facility] 8 00:00: 00 codeine DA Active U Hives [facility] 2 00:00: 00 NO KNOWN Drug Active Univers ALLERGIE Class ity of S [facility] [place] Social History Social Habit Start Date Stop Date Quantity Comments Source Exposure to Not sure [facility] SARS-CoV-2 (event) Medica l Branch Sex Assigned At [birth year] [facility] 00:00:00 00:00:00 Medical Branch Smoking Status Start Date Stop Date Source Unknown if ever smoked [facility] Medications This patient has no known medications. Immunizations Ordered Filled Immunization Date Status Comments [facility] e Immunization Name Name PPD (TB) 2002-12-11 Completed [facility] 00:00:00 [facility] Vital Signs Vital Name Observation Time Observation Value Comments Source Systolic blood 2021-01-10 15:29:00 158 mm[Hg] [facility] Diastolic blood 2021-01-10 15:29:00 94 mm[Hg[facility] Heart rate 2021-01-10 15:29:00 101 /min [facility] Body temperature 2021-01-10 15:29:00 36.78 [facility] Respiratory rate 2021-01-10 15:29:00 18 /[facility] Body weight 2021-01-10 15:29:00 136.079 kg [facility] Oxygen saturation in 2021-01-10 15:29:00 98 /min [facility] Arterial blood by [facility] Pulse oximetry Branch 02 Sat by Pulse 2020-04-02 19:10:17 97 /min Oximetry Body Mass Index 2020-04-02 19:10:17 42.1 Height 2020-04-02 19:10:17 180.34\S\71 Pulse Rate 2020-04-02 19:10:17 106 /min Respiratory Rate 2020-04-02 19:10:17 18 /min Temperature 2020-04-02 19:10:17 36.8\S\98.2 Weight 2020-04-02 19:10:17 670416.895\S\4832 Weight Measurement 2020-04-02 19:10:17 Estimated by Method Patient Respiratory 2020-04-02 19:10:17 No respiratory distress /min Respiratory 2020-04-02 18:29:56 No respiratory distress /min 02 Sat by Pulse 2020-04-02 18:29:56 97 /min Oximetry Body Mass Index 2020-04-02 18:29:56 42.1 Height 2020-04-02 18:29:56 180.34\S\71 Pulse Rate 2020-04-02 18:29:56 106 /min Respiratory Rate 2020-04-02 18:29:56 18 /min Temperature 2020-04-02 18:29:56 36.8\S\98.2 Weight 2020-04-02 18:29:56 682233.895\S\4832 Weight Measurement 2020-04-02 18:29:56 Estimated by Method Patient Respiratory 2020-04-02 18:29:25 No respiratory distress /min 02 Sat by Pulse 2020-04-02 18:29:25 97 /min Oximetry Body Mass Index 2020-04-02 18:29:25 42.1 Height 2020-04-02 18:29:25 180.34\S\71 Pulse Rate 2020-04-02 18:29:25 106 /min Respiratory Rate 2020-04-02 18:29:25 18 /min Temperature 2020-04-02 18:29:25 36.8\S\98.2 Weight 2020-04-02 18:29:25 768337.895\S\4832 Weight Measurement 2020-04-02 18:29:25 Estimated by Method Patient Respiratory 2020-04-02 16:30:32 No respiratory distress /min 02 Sat by Pulse 2020-04-02 16:30:32 97 /min Oximetry Body Mass Index 2020-04-02 16:30:32 42.1 Height 2020-04-02 16:30:32 180.34\S\71 Pulse Rate 2020-04-02 16:30:32 106 /min Respiratory Rate 2020-04-02 16:30:32 18 /min Temperature 2020-04-02 16:30:32 36.8\S\98.2 Weight 2020-04-02 16:30:32 180034.895\S\4832 Weight Measurement 2020-04-02 16:30:32 Estimated by Method Patient Respiratory 2020-04-02 16:00:18 No respiratory distress /min 02 Sat by Pulse 2020-04-02 16:00:18 97 /min Oximetry Body Mass Index 2020-04-02 16:00:18 42.1 Height 2020-04-02 16:00:18 180.34\S\71 Pulse Rate 2020-04-02 16:00:18 106 /min Respiratory Rate 2020-04-02 16:00:18 18 /min Temperature 2020-04-02 16:00:18 36.8\S\98.2 Weight 2020-04-02 16:00:18 133573.895\S\4832 Weight Measurement 2020-04-02 16:00:18 Estimated by Method Patient 02 Sat by Pulse 2020-04-02 15:13:14 97 /min Oximetry Body Mass Index 2020-04-02 15:13:14 42.1 Height 2020-04-02 15:13:14 180.34\S\71 Pulse Rate 2020-04-02 15:13:14 106 /min Respiratory Rate 2020-04-02 15:13:14 18 /min Temperature 2020-04-02 15:13:14 36.8\S\98.2 Weight 2020-04-02 15:13:14 148819.895\S\4832 Weight Measurement 2020-04-02 15:13:14 Estimated by Method Patient 02 Sat by Pulse 2020-04-02 15:11:41 97 /min Oximetry Body Mass Index 2020-04-02 15:11:41 42.1 Height 2020-04-02 15:11:41 180.34\S\71 Pulse Rate 2020-04-02 15:11:41 106 /min Respiratory Rate 2020-04-02 15:11:41 18 /min Temperature 2020-04-02 15:11:41 36.8\S\98.2 Weight 2020-04-02 15:11:41 446221.895\S\4832 Weight Measurement 2020-04-02 15:11:41 Estimated by Method Patient WEIGHT 2020-04-02 15:07:00 136.771843 kg HEIGHT 2020-04-02 15:07:00 180.34 cm Procedures Procedure Date / Time Performed Performing Clinician [facility] e NOTICE OF PRIVACY 2021-01-10 15:25:17 Doctor Unassigned, No Univ [facility] PRACTICES Name Medical Branch Encounters Start End Encounter Admission Attending Care Care Encounter Source Date/Time Date/Time Type Type Clinicians Facility Department ID 2021-02-25 Inpatient [facility] [id number] [facility] 13:20:00 49 2020-10-01 Inpatient [facility] [id number] [facility] 14:41:00 66 2020-10-01 Inpatient [facility] [id number] [facility] 14:41:00 66 2020-04-02 Inpatient [facility] [id number] [facility] 14:03:00 77 2021-09-09 2021-09-09 Outpatient [facility] [id number] [place] 02:47:00 02:47:00 H 0712 da [facility] Outre h Program 2021-02-25 2021-02-25 Emergency [facility] [id number] [facility] 13:29:00 13:29:00 49 2021-01-10 2021-01-10 Emergency X [facility] ERT [id number] Univers 09:31:00 10:11:00 LOUIE simon [facility] 2021-01-10 2021-01-10 Emergency [facility] [id number] Univers 09:31:00 10:11:00 Louie BAZAN [id number] i [facility] [id number] [facility] [id number] [place] [id number] Branch 2020-04-02 2020-04-02 Emergency [facility] [id number] [facility] 14:03:00 14:03:00 77 Results Test Description Test Time Test Comments Results Result Comments Source UA, Urinalysis Macroscopic 2021-02-25 14:25:00 Test Item Value Reference Range Interpretation Comme nts Color,Urine (test code = UCOL) Yellow Yellow Clarity,Urine (test code = UCLAR) Clear Clear PH,Urine (test code = UPH.XX) 6.0 5.5-8.5 Specific [place],Urine (test code = USG) 1.030 1.005-1.030 N [...] = ULEU) Negative cells/uL Negat destin Drug Screen,[id number] 14:25:00 Test Item Value Reference Range Interpretation [...] Negative Negative code = UPROP) Comprehensive Metabolic [id number] 14:10:00 Test Item Value Reference Range Interpretation [...] 92 U/L 46-116 N = ALP) Ethanol [id number] 14:10:00 Test Item Value Reference Range Interpretation Comments Ethanol (test code < 3 mg/dL The pharm acological = ETOH) response to blo od alcohol levels mayvary from individual to i ndividual. The fatal jaimee ntrationhas been reported t o be >400mg/dL. Complete Blood Count Auto [id number] 14:10:00 Test Item Value Reference Range Interpretation [...] = NRBCP) 0 % Coronavirus PCR, COVID19 [id number] 14:03:00 Test Item Value Reference Range Interpretation Comments Coronavirus PCR, For use under Emergency COVID19 Rapid (test Use Authorization (EUA) code = SARSCOV2) only. Coronavirus PCR, Reference Range: COVID19 Rapid (test Negative code = OXBTCQC22.1) SARS-CoV-2 PCR Result: Negative by RT-PCR (test code = SARS-CoV-2 PCR Result:) COVID-19 Status: AsymptomaticDrug Screen,[id number] 15:25:00 Test Item Value Reference Range Interpretation [...] code = UPROP) Complete Blood Count Auto [id number] 15:03:00 Test Item Value Reference Range Interpretation [...] code = NRBCP) 0 % Comprehensive Metabolic [id number] 15:03:00 Test Item Value Reference Range Interpretation [...] 99 U/L 46-116 N = ALP) Ethanol [id number] 15:03:00 Test Item Value Reference Range Interpretation Comments Ethanol (test code = ETOH) < 3 mg/dL Coronavirus PCR, COVID19 [id number] 14:58:00 Test Item Value Reference Range Interpretation Comments Coronavirus PCR, For use under Emergency COVID19 Rapid (test Use Authorization (EUA) code = SARSCOV2) only. Coronavirus PCR, Reference Range: COVID19 Rapid (test Negative code = TOWCMEP86.1) SARS-CoV-2 PCR Result: Negative by PCR (test code = SARS-CoV-2 PCR Result:) COVID-19 Status: [id number]/FLU A/B RSV [id number] 16:05:00 Test Item Value Reference Range Interpretation [...] SARS-CoV-2 PCR Result:) Complete Blood Count Auto [id number] 16:00:00 Test Item Value Reference Range Interpretation [...] code = NRBCP) 0 % Comprehensive Metabolic [id number] 16:00:00 Test Item Value Reference Range Interpretation [...] 98 U/L 46-116 N = ALP) Ethanol [id number] 16:00:00 Test Item Value Reference Range Interpretation Comments Ethanol (test code = ETOH) 7 mg/dL Drug Screen,[id number] 15:45:00 Test Item Value Reference Range Interpretation [...] (test code = UPROP) UA, Urinalysis Rflx Cult/[id number] 15:45:00 Test Item Value Reference Range Interpretation Comments Color,Urine (test code = Yellow Y UCOL) Clarity,Urine (test code = Slightly Cloudy Clear A UCLAR) PH,Urine (test code = UPH.XX) 5.5 5.5-8.5 Specific [place],Urine (test 1.030 1.005-1.030 N code = USG) [...] Negative A (test code = ULEU) Urine [id number] 15:45:00 Test Item Value Reference Range Interpretation [...]
[2021-12-15 07:39] LABS: Absolute Lymphocytes (CBC) 2.4 K/uL (0.7-4.9); Hematocrit 45.3 % (39.6-49.0); Lymphocytes % 25.3 % (15.3-44.8); MCV 90.6 fL (80-100); MPV 8.9 fL (7.6-11.3)
[2021-12-15 07:50] LABS: Potassium 4.3 mmol/L (3.5-5.1); Troponin High Sensitivity 6.1 pg/mL (<58.9)
--- NOTE | 2021-12-15 08:09 | RAD REPORT ---
EXAM DESCRIPTION: [facility] Single View12/15/2021 7:38 am CLINICAL HISTORY: Chest pain COMPARISON: none FINDINGS: The lungs appear clear of acute infiltrate. The heart is normal size IMPRESSION: No acute abnormalities displayed
--- NOTE | 2021-12-15 10:10 | ER ---
Nurse's Notes [facility] Name: Munir Hayes Age: 26 yrs Sex: Male : 1995 Arrival Date: 12/15/2021 Time: 07:01 Bed 17 Private MD: Diagnosis: Chest pain, unspecified;Anxiety disorder, unspecified Presentation: 12/15 07:06 Chief complaint: EMS states: Toned out for CP, on arrival patient states that no longer ke1 having CP but feeling like he is being attacked by demons. 07:06 Method Of Arrival: EMS: [facility] ke1 07:10 Coronavirus screen: Vaccine status: Patient reports being unvaccinated. Ebola Screen: tp1 Patient denies exposure to infectious person. Patient denies travel to an Ebola-affected area in the 21 days before illness onset. 07:10 Initial Sepsis Screen: Does the patient meet any 2 criteria? No. Patient's initial tp1 sepsis screen is negative. Does the patient have a suspected source of infection? No. Patient's initial sepsis screen is negative. Risk Assessment: Do you want to hurt yourself or someone else? Patient reports no desire to harm self or others. Onset of symptoms was December 15, 2021. 07:10 Acuity: DORIS 3 tp1 Triage Assessment: 07:10 General: Appears in no apparent distress. comfortable, unkempt, Behavior is calm, tp1 cooperative. Pain: Denies pain. EENT: No signs and/or symptoms were reported regarding the EENT system. Neuro: Level of Consciousness is awake, alert, obeys commands, Oriented to person, place, time, situation, Pupils are Pupil Size: 5. Cardiovascular: Patient's skin is warm and dry. Respiratory: Airway is patent Respiratory effort is even, unlabored. GI: No signs and/or symptoms were reported involving the gastrointestinal system. GI: No signs and/or symptoms were reported involving the gastrointestinal system. Abdomen is round non-distended, Reports nausea. : No signs and/or symptoms were reported regarding the genitourinary system. Derm: Skin is pink, warm \T\ dry. Musculoskeletal: Circulation, motion, and sensation intact. Historical: - Allergies: 07:50 Codeine; tp1 - Home Meds: 07:50 Zoloft Oral [Active]; risperidone oral [Active]; hydroxyzine [Active]; tp1 - PMHx: 07:50 Depression; Schizophrenia; Anxiety; tp1 - Immunization history:: Client reports having NOT received the Covid vaccine. - Social history:: Smoking status: Patient reports the use of cigarette tobacco products, smokes two packs cigarettes per day. Patient uses street drugs, marijuana. Screenin:10 Abuse screen: Denies threats or abuse. Denies injuries from another. Nutritional tp1 screening: No deficits noted. Tuberculosis screening: No symptoms or risk factors identified. Fall Risk No fall in past 12 months (0 pts). No secondary diagnosis (0 pts). IV access (20 points). Ambulatory Aid- None/Bed Rest/Nurse Assist (0 pts). Gait- Normal/Bed Rest/Wheelchair (0 pts) Mental Status- Oriented to own ability (0 pts). Assessment: 07:10 General: see triage assessment . tp1 08:10 Reassessment: Patient appears in no apparent distress at this time. No changes from tp1 previously documented assessment. Patient and/or family updated on plan of care and expected duration. Pain level reassessed. Patient is alert, oriented x 3, equal unlabored respirations, skin warm/dry/pink. Patient denies pain at this time. 09:10 General: Appears in no apparent distress. comfortable, obese, Behavior is calm, kr3 cooperative, Smells of cigarettes . 10:36 Reassessment: No changes from previously documented assessment. Patient and/or family kr3 updated on plan of care and expected duration. Pain level reassessed. Patient is alert, oriented x 3, equal unlabored respirations, skin warm/dry/pink. Vital Signs: 07:10 BP 136 / 96; Pulse 103; Resp 18; Temp 98.6; Pulse Ox 100% on R/A; Weight 135.17 kg; tp1 Height 5 ft. 11 in. (180.34 cm); 09:05 BP 131 / 77; Pulse 101; Resp 18; Pulse Ox 98% on R/A; kr3 10:05 BP 117 / 80; Pulse 73; Resp 18; Pulse Ox 99% on R/A; kr3 10:36 BP 129 / 84; Pulse 83; Resp 18; Pulse Ox 99% on R/A; kr3 07:10 Body Mass Index 41.56 (135.17 kg, 180.34 cm) tp1 ED Course: 07:01 Patient arrived in ED. mm9 07:04 Cathy Fuentes MD is Attending Physician. [email or web address] [email or web address] 07:06 Emanuel Headley RN is Primary Nurse. ke1 07:10 Patient has correct armband on for positive identification. Placed in gown. Bed in low tp1 position. Call light in reach. 07:10 Arm band placed on. tp1 07:25 Inserted saline lock: 22 gauge in right forearm, using aseptic technique. Blood tp1 collected. 07:25 EKG done. tp1 07:38 X-ray completed. Portable x-ray completed in exam room. md2 07:50 Triage completed. tp1 10:22 RAD In Process Unspecified. EDMS 10:30 No provider procedures requiring assistance completed. kr3 10:40 IV discontinued, intact, bleeding controlled, No redness/swelling at site. Pressure kr3 dressing applied. Administered Medications: 10:17 Drug: hydrOXYzine 25 mg Route: PO; kr3 10:39 Follow up: Response: No adverse reaction kr3 Medication: 10:40 VIS not applicable for this client. kr3 Outcome: 10:09 Discharge ordered by . sd2 10:39 Discharged to home ambulatory. kr3 10:39 Condition: stable 10:39 Discharge instructions given to patient, Instructed on discharge instructions, follow up and referral plans. Demonstrated understanding of instructions, follow-up care. 10:41 Patient left the ED. kr3 Signatures: Dispatcher [employer] EDMS Fani Morales RN RN tp1 Emanuel Headley RN RN ke1 Cathy Fuentes MD MD sd2 Radha Fitzgerald RN RN kr3 Marjan Rawls mm9 Madie English Corrections: (The following items were deleted from the chart) 10:38 10:29 BP 117 / 80; Pulse 73bpm; Resp 18bpm; Pulse Ox 99% RA; kr3 kr3
--- NOTE | 2021-12-15 10:10 | EDPHYS ---
Physician Documentation [facility] Name: Munir Hayes Age: 26 yrs Sex: Male : 1995 Arrival Date: 12/15/2021 Time: 07:01 Bed 17 Private MD: ED Physician Cathy Fuentes HPI: 12/15 07:57 This 26 yrs old Male presents to ER via EMS with complaints of chest pain. sd2 08:00 26-year-old male presents with chief complaint via EMS of chest pain. He has a history sd2 of schizophrenia and anxiety and states he forgot to take his medications last night and his anxiety was worse than normal. He does endorse associated shortness of breath and nausea without vomiting or diaphoresis. He has no known prior cardiac history. Patient states his chest pain has now resolved.. Historical: - Allergies: 07:50 Codeine; tp1 - Home Meds: 07:50 Zoloft Oral [Active]; risperidone oral [Active]; hydroxyzine [Active]; tp1 - PMHx: 07:50 Depression; Schizophrenia; Anxiety; tp1 - Immunization history:: Client reports having NOT received the Covid vaccine. - Social history:: Smoking status: Patient reports the use of cigarette tobacco products, smokes two packs cigarettes per day. Patient uses street drugs, marijuana. ROS: 08:00 Constitutional: Negative for fever, chills, and weight loss, Eyes: Negative for injury, sd2 pain, redness, and discharge, Cardiovascular: Positive for chest pain, Negative for palpitations, and edema, Respiratory: Positive for shortness of breath, Negative for cough, wheezing. Abdomen/GI: Negative for abdominal pain, vomiting, diarrhea. Positive for nausea. Back: Negative for injury and pain, MS/Extremity: Negative for injury and deformity, Skin: Negative for injury, rash, and discoloration, Neuro: Negative for headache, numbness and tingling. Exam: 08:00 Constitutional: This is a well developed, well nourished patient who is awake, alert, sd2 and in no acute distress. Head/Face: Normocephalic, atraumatic. Eyes: EOMI, normal conjunctiva bilaterally Chest/axilla: Normal chest wall appearance and motion. Nontender with no deformity. Cardiovascular: Regular rate and rhythm with a normal S1 and S2. No gallops, murmurs, or rubs. 2+ distal pulses. Respiratory: Lungs have equal breath sounds bilaterally, clear to auscultation and percussion. No rales, rhonchi or wheezes noted. No increased work of breathing, no retractions or nasal flaring. Abdomen/GI: Soft, non-tender, with normal bowel sounds. No guarding or rebound. No evidence of tenderness throughout. Skin: Warm, dry with normal turgor. Normal color with no rashes, no lesions, and no evidence of cellulitis. MS/ Extremity: Pulses equal, no cyanosis. Neurovascular intact. Full, normal range of motion. Ambulatory without difficulty. 08:57 ECG was reviewed by the Attending Physician. NSR, rate 97, no STEMI criteria or ST-T sd2 wave changes Vital Signs: 07:10 BP 136 / 96; Pulse 103; Resp 18; Temp 98.6; Pulse Ox 100% on R/A; Weight 135.17 kg; tp1 Height 5 ft. 11 in. (180.34 cm); 09:05 BP 131 / 77; Pulse 101; Resp 18; Pulse Ox 98% on R/A; kr3 10:05 BP 117 / 80; Pulse 73; Resp 18; Pulse Ox 99% on R/A; kr3 10:36 BP 129 / 84; Pulse 83; Resp 18; Pulse Ox 99% on R/A; kr3 07:10 Body Mass Index 41.56 (135.17 kg, 180.34 cm) tp1 MDM: 07:04 Patient medically screened. sd2 08:00 Differential Diagnosis Differential diagnosis includes but is not limited to: ACS, sd2 DVT/PE, pneumothorax, dissection, musculoskeletal, anxiety, anemia, electrolyte abnormality, pneumonia, CHF, COPD among others. Data reviewed: vital signs, nurses notes, EKG. 10:07 Data reviewed: lab test result(s), radiologic studies. Counseling: I had a detailed sd2 discussion with the patient and/or guardian regarding: the historical points, exam findings, and any diagnostic results supporting the discharge/admit diagnosis, lab results, radiology results, the need for outpatient follow up, to return to the emergency department if symptoms worsen or persist or if there are any questions or concerns that arise at home. Medical screen evaluation completed. EMTALA emergency medical condition absent. ED course: Labs and imaging reviewed. Trop neg. EKG with no ischemic changes. Heart score 1. CXR with no acute process. Pt remains CP free. He is comfortable with plan for discharge and outpatient follow up and will resume his home medications for anxiety when he returns home as prescribed. Verbalizes understanding of discharge plan and strict return precautions. . 12/15 07:15 Order name: CBC with Diff sd2 12/15 07:15 Order name: BMP sd2 12/15 07:15 Order name: Troponin High Sensitivity sd2 12/15 07:39 Order name: CBC with Automated Diff EDMS 12/15 07:50 Order name: Basic Metabolic Panel EDMS 12/15 07:50 Order name: Troponin High Sensitivity EDMS 12/15 07:15 Order name: EKG - Nurse/Tech; Complete Time: 07:56 sd2 12/15 07:15 Order name: XRAY Chest (1 view) sd2 12/15 08:09 Order name: RAD EDMS Administered Medications: :17 Drug: hydrOXYzine 25 mg Route: PO; kr3 10:39 Follow up: Response: No adverse reaction kr3 Disposition Summary: 12/15/21 10:09 Discharge Ordered Location: Home sd2 Problem: new sd2 Symptoms: are resolved sd2 Condition: Stable sd2 Diagnosis - Chest pain, unspecified sd2 - Anxiety disorder, unspecified sd2 Followup: sd2 - With: Private Physician - When: 2 - 3 days - Reason: Recheck today's complaints, Continuance of care, Re-evaluation by your physician Discharge Instructions: - Discharge Summary Sheet sd2 - Nonspecific Chest Pain, Adult sd2 - Managing Anxiety, Adult sd2 Forms: - Medication Reconciliation Form sd2 - Thank You Letter sd2 - Antibiotic Education sd2 - Prescription Opioid Use sd2 Signatures: Dispatcher [employer] EDFani Butler RN RN tp1 Cathy Fuentes MD MD sd2 Radha Fitzgerald RN RN kr3
[2021-12-15] MEDS ORDERED: hydrOXYzine HCL 25 MG TAB ONE (10:12)
[2021-12-15 11:30] VITALS: TEMP 98.6
[2021-12-15 11:48] VITALS: O2SAT 99
[2021-12-15 11:50] VITALS: BP 129/84
--- NOTE | 2021-12-16 14:06 | EKG ---
Test Date: 2021-12-15 Test Time: 07:21:59 Core Piler: MEASUREMENT RESULTS: Intervals: Rate: 97 VT: 140 QRSD: 80 QT: 358 QTc: 454 [place]: P: 64 VT: 140 QRS: 23 T: 48 INTERPRETIVE STATEMENTS: Normal sinus rhythm Normal ECG Compared to ECG 01/05/2017 16:46:14 Sinus tachycardia no longer present T-wave abnormality no longer present Electronically Signed On 12-16-21 14:02:35 CDT by Cordell Perez
== END 2021-12-15 10:41 | disposition home or self-care (01) ==
LOC: ER 06:57
DX: R07.9 Chest pain, unspecified (principal); F41.9 Anxiety disorder, unspecified; Z88.6 Allergy status to analgesic agent; F20.9 Schizophrenia, unspecified
CPT/HCPCS: 36415; 71045; 80048; 84484; 85025; 93005; 99284

== ENCOUNTER 2022-02-26 19:43 | Emergency (ER) | payer SELFPAY ==
--- OUTSIDE RECORDS SUMMARY | 2022-02-26 19:47 | XMS REPORT | Continuity of Care Document ---
:1995 Author Organization [facility] t Address [address] [place] [address] Care Team Providers Name Role Phone [facility] Primary Care Physician Unavailable CARROLL Attending Clinician Unavailable LOUIE STEVENS Attending Clinician Unavailable Louie Stevens DO Attending Clinician CARROLL Admitting Clinician Unavailable Payers Payer Name Policy Type Policy Number Effective Date Expiration Date S [facility] MEDICAID PENDING PENDING 2021 00:00:00 Problems This patient has no known problems. Allergies, Adverse Reactions, Alerts Allergy Allergy Status Severity Reaction(s) Onset Inactive Treating Comm ents Source Name Type Date Date Clinician Unable DA Active U 2020-03 [facility] to 04-28 Assess 00:00: 00 codeine DA Active U Rash 2020-03 [facility] 04-28 00:00: 00 CODEINE DRUG Active Dizziness 2020-03 Univer s INGREDI 1-12 ity of 00:00: [place] 00 Medical Branch Codeine Propensi Active Dizziness 2020-03 Univ ers ty to 12 ity of adverse 00:00: [place] reaction Medical s Branch codeine DA Active U Hives [facility] 8 00:00: 00 codeine DA Active U Hives [facility] 2 00:00: 00 NO KNOWN Drug Active Univers ALLERGIE Class ity of S [facility] Social History Social Habit Start Date Stop Date Quantity Comments Source Exposure to Not sure [facility] SARS-CoV-2 (event) Medica l Branch Sex Assigned At [birth year] [facility] 00:00:00 00:00:00 Medical Branch Smoking Status Start Date Stop Date Source Unknown if ever smoked [facility] Medications This patient has no known medications. Immunizations Ordered Filled Immunization Date Status Comments [facility] e Immunization Name Name PPD (TB) 2002-12-11 Completed [facility] 00:00:00 [facility] Vital Signs Vital Name Observation Time Observation Value Comments Source Systolic blood 2021-01-10 15:29:00 158 mm[Hg] Univer [facility] Diastolic blood 2021-01-10 15:29:00 94 mm[Hg] Unive [facility] Heart rate 2021-01-10 15:29:00 101 /min [facility] Body temperature 2021-01-10 15:29:00 36.78 Elisa [facility] Respiratory rate 2021-01-10 15:29:00 18 /min [facility] Body weight 2021-01-10 15:29:00 136.079 kg [facility] Oxygen saturation in 2021-01-10 15:29:00 98 /min [facility] Arterial blood by [facility] Pulse oximetry Branch 02 Sat by Pulse 2020-04-02 19:10:17 97 /min Oximetry Body Mass Index 2020-04-02 19:10:17 42.1 Height 2020-04-02 19:10:17 180.34\S\71 Pulse Rate 2020-04-02 19:10:17 106 /min Respiratory Rate 2020-04-02 19:10:17 18 /min Temperature 2020-04-02 19:10:17 36.8\S\98.2 Weight 2020-04-02 19:10:17 178625.895\S\4832 Weight Measurement 2020-04-02 19:10:17 Estimated by Method Patient Respiratory 2020-04-02 19:10:17 No respiratory distress /min Respiratory 2020-04-02 18:29:56 No respiratory distress /min 02 Sat by Pulse 2020-04-02 18:29:56 97 /min Oximetry Body Mass Index 2020-04-02 18:29:56 42.1 Height 2020-04-02 18:29:56 180.34\S\71 Pulse Rate 2020-04-02 18:29:56 106 /min Respiratory Rate 2020-04-02 18:29:56 18 /min Temperature 2020-04-02 18:29:56 36.8\S\98.2 Weight 2020-04-02 18:29:56 356262.895\S\4832 Weight Measurement 2020-04-02 18:29:56 Estimated by Method Patient Respiratory 2020-04-02 18:29:25 No respiratory distress /min 02 Sat by Pulse 2020-04-02 18:29:25 97 /min Oximetry Body Mass Index 2020-04-02 18:29:25 42.1 Height 2020-04-02 18:29:25 180.34\S\71 Pulse Rate 2020-04-02 18:29:25 106 /min Respiratory Rate 2020-04-02 18:29:25 18 /min Temperature 2020-04-02 18:29:25 36.8\S\98.2 Weight 2020-04-02 18:29:25 533665.895\S\4832 Weight Measurement 2020-04-02 18:29:25 Estimated by Method Patient Respiratory 2020-04-02 16:30:32 No respiratory distress /min 02 Sat by Pulse 2020-04-02 16:30:32 97 /min Oximetry Body Mass Index 2020-04-02 16:30:32 42.1 Height 2020-04-02 16:30:32 180.34\S\71 Pulse Rate 2020-04-02 16:30:32 106 /min Respiratory Rate 2020-04-02 16:30:32 18 /min Temperature 2020-04-02 16:30:32 36.8\S\98.2 Weight 2020-04-02 16:30:32 323247.895\S\4832 Weight Measurement 2020-04-02 16:30:32 Estimated by Method Patient Respiratory 2020-04-02 16:00:18 No respiratory distress /min 02 Sat by Pulse 2020-04-02 16:00:18 97 /min Oximetry Body Mass Index 2020-04-02 16:00:18 42.1 Height 2020-04-02 16:00:18 180.34\S\71 Pulse Rate 2020-04-02 16:00:18 106 /min Respiratory Rate 2020-04-02 16:00:18 18 /min Temperature 2020-04-02 16:00:18 36.8\S\98.2 Weight 2020-04-02 16:00:18 110511.895\S\4832 Weight Measurement 2020-04-02 16:00:18 Estimated by Method Patient 02 Sat by Pulse 2020-04-02 15:13:14 97 /min Oximetry Body Mass Index 2020-04-02 15:13:14 42.1 Height 2020-04-02 15:13:14 180.34\S\71 Pulse Rate 2020-04-02 15:13:14 106 /min Respiratory Rate 2020-04-02 15:13:14 18 /min Temperature 2020-04-02 15:13:14 36.8\S\98.2 Weight 2020-04-02 15:13:14 448344.895\S\4832 Weight Measurement 2020-04-02 15:13:14 Estimated by Method Patient 02 Sat by Pulse 2020-04-02 15:11:41 97 /min Oximetry Body Mass Index 2020-04-02 15:11:41 42.1 Height 2020-04-02 15:11:41 180.34\S\71 Pulse Rate 2020-04-02 15:11:41 106 /min Respiratory Rate 2020-04-02 15:11:41 18 /min Temperature 2020-04-02 15:11:41 36.8\S\98.2 Weight 2020-04-02 15:11:41 000033.895\S\4832 Weight Measurement 2020-04-02 15:11:41 Estimated by Method Patient WEIGHT 2020-04-02 15:07:00 136.154820 kg HEIGHT 2020-04-02 15:07:00 180.34 cm Procedures Procedure Date / Time Performed Performing Clinician [facility] e NOTICE OF PRIVACY 2021-01-10 15:25:17 Doctor Unassigned, No [facility] PRACTICES Name Medical Branch Encounters Start End Encounter Admission Attending Care Care Encounter Source Date/Time Date/Time Type Type Clinicians Facility Department ID 2021-02-25 Inpatient [facility] [id number] [facility] 13:20:00 49 2020-10-01 Inpatient [facility] [id number] [facility] 14:41:00 66 2020-10-01 Inpatient [facility] [id number] [facility] 14:41:00 66 2020-04-02 Inpatient [facility] [id number] [facility] 14:03:00 77 2021-09-09 2021-09-09 Outpatient JUSTINAI_CAROL [facility] [address] [place] 02:47:00 02:47:00 H 0712 da [facility] Outre h Program 2021-02-25 2021-02-25 Emergency [facility] [id number] [facility] 13:29:00 13:29:00 49 2021-01-10 2021-01-10 Emergency X [facility] ERT [id number] Univers 09:31:00 10:11:00 LOUIE simon [facility] 2021-01-10 2021-01-10 Emergency [facility] [id number] Univers 09:31:00 10:11:00 Louie BAZAN [id number] [facility] [id number] [facility] [id number] [place] [id number] Branch 2020-04-02 2020-04-02 Emergency [facility] [id number] [facility] 14:03:00 14:03:00 77 Results Test Description Test Time Test Comments Results Result Comments Source UA, Urinalysis Macroscopic 2021-02-25 14:25:00 Test Item Value Reference Range Interpretation Comme nts Color,Urine (test code = UCOL) Yellow Yellow Clarity,Urine (test code = UCLAR) Clear Clear PH,Urine (test code = UPH.XX) 6.0 5.5-8.5 Specific [place],Urine (test code = USG) 1.030 1.005-1.030 N [...] = ULEU) Negative cells/uL Negat destin Drug Screen,[id number] 14:25:00 Test Item Value Reference Range Interpretation [...] Negative Negative code = UPROP) Comprehensive Metabolic [id number] 14:10:00 Test Item Value Reference Range Interpretation [...] 92 U/L 46-116 N = ALP) Ethanol [id number] 14:10:00 Test Item Value Reference Range Interpretation Comments Ethanol (test code < 3 mg/dL The pharm acological = ETOH) response to blo od alcohol levels mayvary from individual to i ndividual. The fatal jaimee ntrationhas been reported t o be >400mg/dL. Complete Blood Count Auto [id number] 14:10:00 Test Item Value Reference Range Interpretation [...] = NRBCP) 0 % Coronavirus PCR, COVID19 [id number] 14:03:00 Test Item Value Reference Range Interpretation Comments Coronavirus PCR, For use under Emergency COVID19 Rapid (test Use Authorization (EUA) code = SARSCOV2) only. Coronavirus PCR, Reference Range: COVID19 Rapid (test Negative code = WBRUPJF20.1) SARS-CoV-2 PCR Result: Negative by RT-PCR (test code = SARS-CoV-2 PCR Result:) COVID-19 Status: AsymptomaticDrug Screen,[id number] 15:25:00 Test Item Value Reference Range Interpretation [...] code = UPROP) Complete Blood Count Auto [id number] 15:03:00 Test Item Value Reference Range Interpretation [...] code = NRBCP) 0 % Comprehensive Metabolic [id number] 15:03:00 Test Item Value Reference Range Interpretation [...] 99 U/L 46-116 N = ALP) Ethanol [id number] 15:03:00 Test Item Value Reference Range Interpretation Comments Ethanol (test code = ETOH) < 3 mg/dL Coronavirus PCR, COVID19 [id number] 14:58:00 Test Item Value Reference Range Interpretation Comments Coronavirus PCR, For use under Emergency COVID19 Rapid (test Use Authorization (EUA) code = SARSCOV2) only. Coronavirus PCR, Reference Range: COVID19 Rapid (test Negative code = SJOQIDJ03.1) SARS-CoV-2 PCR Result: Negative by PCR (test code = SARS-CoV-2 PCR Result:) COVID-19 Status: [id number]/FLU A/B RSV [id number] 16:05:00 Test Item Value Reference Range Interpretation [...] SARS-CoV-2 PCR Result:) Complete Blood Count Auto [id number] 16:00:00 Test Item Value Reference Range Interpretation [...] code = NRBCP) 0 % Comprehensive Metabolic [id number] 16:00:00 Test Item Value Reference Range Interpretation [...] 98 U/L 46-116 N = ALP) Ethanol [id number] 16:00:00 Test Item Value Reference Range Interpretation Comments Ethanol (test code = ETOH) 7 mg/dL Drug Screen,[id number] 15:45:00 Test Item Value Reference Range Interpretation [...] (test code = UPROP) UA, Urinalysis Rflx Cult/[id number] 15:45:00 Test Item Value Reference Range Interpretation Comments Color,Urine (test code = Yellow Y UCOL) Clarity,Urine (test code = Slightly Cloudy Clear A UCLAR) PH,Urine (test code = UPH.XX) 5.5 5.5-8.5 Specific [place],Urine (test 1.030 1.005-1.030 N code = USG) [...] Negative A (test code = ULEU) Urine [id number] 15:45:00 Test Item Value Reference Range Interpretation [...]
[2022-02-26 20:49] LABS: Urine Blood Negative (Negative); Urine Glucose Negative (Negative); Urine Protein Negative (Negative); Urine Specific Gravity 1.025 (1.005-1.030); Urine pH 5.5 (5.0-7.0)
[2022-02-26 21:00] LABS: Absolute Lymphocytes (CBC) 2.4 K/uL (0.7-4.9); Hematocrit 47.8 % (39.6-49.0); Lymphocytes % 24.5 % (15.3-44.8); MCV 90.5 fL (80-100); MPV 9.3 fL (7.6-11.3); RBC Red Blood Cell Count 5.29 M/uL (4.33-5.43)
[2022-02-26 21:09] LABS: Barbiturates NEGATIVE (NEGATIVE); Benzodiazepines NEGATIVE (NEGATIVE); Cocaine NEGATIVE (NEGATIVE); METHAMPHETAM NEGATIVE (NEGATIVE); Methadone NEGATIVE (NEGATIVE); Opiates NEGATIVE (NEGATIVE); Phencyclidine NEGATIVE (NEGATIVE); THC Cannibis NEGATIVE (NEGATIVE)
[2022-02-26 21:11] LABS: Protime INR 1.21
[2022-02-26 21:18] LABS: ALT/SGPT 33 U/L (16-61); AST/SGOT 11 U/L (15-37); Albumin 3.9 g/dL (3.4-5.0); Alkaline Phosphatase 78 U/L (45-117); BUN Blood Urea Nitrogen 10 mg/dL (7-18); Bicarbonate 26 mmol/L (21-32); Bilirubin Direct < 0.1 mg/dL (0-0.2); Bilirubin Total 0.3 mg/dL (0.2-1.0); Glomerular Filtration Rate 115 ml/min (=/>90); Glucose Level 104 mg/dL (74-106); Potassium 4.3 mmol/L (3.5-5.1); Protein, Total 8.3 g/dL (6.4-8.2); Sodium Level 136 mmol/L (136-145)
--- NOTE | 2022-02-26 21:52 | EDPHYS ---
Physician Documentation [facility] Name: Munir Hayes Age: 26 yrs Sex: Male : 1995 Arrival Date: 02/26/2022 Time: 19:45 Bed 10 Private MD: ED Physician Tamie Sousa HPI: 02/26 20:29 This 26 yrs old Male presents to ER via EMS with complaints of Altered Mental Status. sp3 20:29 26-year-old male with history of schizophrenia, anxiety, depression presents with chief sp3 complaint "I need help at the psychiatric hospital in [facility] told me to come here." Patient states that he has been having hallucinations and hearing voices. He states that when he was talking to his "weed dealer" he was telling me about the illuminati other medieval groups. Denies suicide ideation, homicide ideation, visual hallucinations. Medical [place] is negative and patient has no somatic complaints including headache, neck pain, chest pain, shortness of breath, back pain, abdominal pain, nausea, vomiting, diarrhea, syncope, focal neurodeficit, rash, known travel history, known sick contacts, any other aspects at this time.. Historical: - Allergies: 20:07 Codeine; ll3 - Home Meds: 20:07 Zoloft Oral [Active]; ll3 - PMHx: 20:07 Anxiety; Depression; Schizophrenia; ll3 - Immunization history:: Client reports having NOT received the Covid vaccine. - Social history:: Smoking status: Patient reports the use of cigarette tobacco products, smokes one pack cigarettes per day. ROS: 20:31 Constitutional: Negative for fever, chills, and weight loss, Eyes: Negative for injury, sp3 pain, redness, and discharge, ENT: Negative for injury, pain, and discharge, Neck: Negative for injury, pain, and swelling, Cardiovascular: Negative for chest pain, palpitations, and edema, Respiratory: Negative for shortness of breath, cough, wheezing, and pleuritic chest pain, Abdomen/GI: Negative for abdominal pain, nausea, vomiting, diarrhea, and constipation, Back: Negative for injury and pain, MS/Extremity: Negative for injury and deformity, Skin: Negative for injury, rash, and discoloration, Neuro: Negative for headache, weakness, numbness, tingling, and seizure, Allergy/Immunology: Negative for hives, rash, and allergies, Endocrine: Negative for neck swelling, polydipsia, polyuria, polyphagia, and marked weight changes, Hematologic/Lymphatic: Negative for swollen nodes, abnormal bleeding, and unusual bruising. 20:31 All other systems are negative. Exam: 20:32 Constitutional: This is a well developed, well nourished patient who is awake, alert, sp3 and in no acute distress. Head/Face: Normocephalic, atraumatic. Eyes: Pupils equal round and reactive to light, extra-ocular motions intact. Lids and lashes normal. Conjunctiva and sclera are non-icteric and not injected. Cornea within normal limits. Periorbital areas with no swelling, redness, or edema. Neck: Trachea midline, no thyromegaly or masses palpated, and no cervical lymphadenopathy. Supple, full range of motion without nuchal rigidity, or vertebral point tenderness. No Meningismus. Chest/axilla: Normal chest wall appearance and motion. Nontender with no deformity. No lesions are appreciated. Cardiovascular: Regular rate and rhythm with a normal S1 and S2. No gallops, murmurs, or rubs. Normal PMI, no JVD. No pulse deficits. Respiratory: Lungs have equal breath sounds bilaterally, clear to auscultation and percussion. No rales, rhonchi or wheezes noted. No increased work of breathing, no retractions or nasal flaring. Abdomen/GI: Soft, non-tender, with normal bowel sounds. No distension or tympany. No guarding or rebound. No evidence of tenderness throughout. Back: No spinal tenderness. No costovertebral tenderness. Full range of motion. Skin: Warm, dry with normal turgor. Normal color with no rashes, no lesions, and no evidence of cellulitis. MS/ Extremity: Pulses equal, no cyanosis. Neurovascular intact. Full, normal range of motion. Neuro: Awake and alert, GCS 15, oriented to person, place, time, and situation. Cranial nerves II-XII grossly intact. Motor strength 5/5 in all extremities. Sensory grossly intact. Cerebellar exam normal. Normal gait. 20:32 Psych: Patient admits to auditory hallucinations denies visual hallucinations. There is no SI or HI. Patient does not appear to be responding to internal stimuli.. 20:58 ECG was reviewed by the Attending Physician. EKG demonstrates normal sinus rhythm at 97 sp3 bpm with normal intervals, normal QRS, normal axis, normal ST/T-segment without evidence of acute ischemia. Vital Signs: 20:04 BP 137 / 105; Pulse 108; Resp 18; Temp 98.6(O); Pulse Ox 98% on R/A; Weight 149.69 kg ll3 (R); Height 5 ft. 11 in. (180.34 cm) (R); Pain 0/10; 22:03 BP 129 / 99; Pulse 101; Resp 18; Pulse Ox 100% on R/A; ld1 20:04 Body Mass Index 46.03 (149.69 kg, 180.34 cm) ll3 MDM: 20:14 Patient medically screened. sp3 20:32 Data reviewed: vital signs, nurses notes. ED course: 26-year-old male with sp3 schizophrenia and auditory hallucinations. Pt does not have suicidal ideation or homicidal ideation at this time. We will contact [facility] for evaluation and possible transfer. Patient also states that he "threw away his meds 2 weeks ago because he was mad" and has not been on any of his medications.. 21:50 ED course: Patient states he needs to leave because his grandmother said so. He sp3 continues to be nonsuicidal and not homicidal. He is now leaving [facility] despite urging him to stay for [facility] evaluation.. 02/26 20:14 Order name: Acetaminophen; Complete Time: 21:40 3 02/26 20:14 Order name: Basic Metabolic Panel; Complete Time: 21:40 3 02/26 20:14 Order name: CBC with Diff; Complete Time: 21:40 3 02/26 20:14 Order name: ETOH Level; Complete Time: 21:40 3 02/26 20:14 Order name: Hepatic Function; Complete Time: 21:40 3 02/26 20:14 Order name: PT-INR; Complete Time: 21:40 3 02/26 20:14 Order name: Ptt, Activated; Complete Time: 21:40 3 02/26 20:14 Order name: Salicylate; Complete Time: 21:40 3 02/26 20:14 Order name: Urine Drug Screen; Complete Time: 21:40 3 02/26 20:14 Order name: EKG; Complete Time: 20:15 sp3 02/26 20:14 Order name: EKG - Nurse/Tech; Complete Time: 20:53 sp3 02/26 20:14 Order name: IV Saline Lock; Complete Time: 20:53 sp3 02/26 20:14 Order name: Labs collected and sent; Complete Time: 20:53 sp3 02/26 20:50 Order name: Urine Dipstick-Ancillary; Complete Time: 21:40 EDMS 02/26 20:14 Order name: Suicide Screening ([place]); Complete Time: 20:44 sp3 02/26 20:14 Order name: Urine Dipstick-Ancillary (obtain specimen); Complete Time: 20:49 sp3 Administered Medications: No medications were administered Disposition Summary: 02/26/22 21:51 Left Against Medical Advice Location: Home sp3 Problem: an acute exacerbation sp3 Symptoms: are unchanged sp3 Condition: Stable sp3 Diagnosis - Schizophrenia, unspecified sp3 Discharge Instructions: - Discharge Summary Sheet sp3 - Schizophrenia sp3 Signatures: Dispatcher [employer] Tamie Garcia MD MD sp3 Carli Gerber RN RN ll3
--- NOTE | 2022-02-26 21:52 | ER ---
Nurse's Notes [facility] Name: Munir Hayes Age: 26 yrs Sex: Male : 1995 Arrival Date: 02/26/2022 Time: 19:45 Bed 10 Private MD: Diagnosis: Schizophrenia, unspecified Presentation: 02/26 20:04 Chief complaint: EMS states: Toned out for left chest numbness and low heart rate of ll3 50, states "My heart rate is usually over 100", states chest numbness resolved prior to EMS arriving. Coronavirus screen: Vaccine status: Patient reports being unvaccinated. At this time, the client does not indicate any symptoms associated with coronavirus-19. Ebola Screen: No symptoms or risks identified at this time. Initial Sepsis Screen: Does the patient meet any 2 criteria? No. Patient's initial sepsis screen is negative. Does the patient have a suspected source of infection? No. Patient's initial sepsis screen is negative. Risk Assessment: Do you want to hurt yourself or someone else? Patient reports no desire to harm self or others. Onset of symptoms was February 26, 2022. 20:04 Method Of Arrival: EMS: [facility] ll3 20:04 Acuity: DORIS 4 ll3 Historical: - Allergies: 20:07 Codeine; ll3 - Home Meds: 20:07 Zoloft Oral [Active]; ll3 - PMHx: 20:07 Anxiety; Depression; Schizophrenia; ll3 - Immunization history:: Client reports having NOT received the Covid vaccine. - Social history:: Smoking status: Patient reports the use of cigarette tobacco products, smokes one pack cigarettes per day. Screenin:03 [facility] ED Fall Risk Assessment (Adult) History of falling in the last 3 months, ld1 including since admission No falls in past 3 months (0 pts). Abuse screen: Denies threats or abuse. Denies injuries from another. Nutritional screening: No deficits noted. Tuberculosis screening: No symptoms or risk factors identified. Assessment: 21:15 Reassessment: See triage assessment. General: Appears in no apparent distress. ld1 comfortable, Behavior is cooperative, appropriate for age, anxious. Pain: Denies pain. Neuro: Level of Consciousness is awake, alert, obeys commands, Oriented to person, place, time, situation. Cardiovascular: Capillary refill < 3 seconds Patient's skin is warm and dry. Respiratory: Airway is patent Respiratory effort is even, unlabored. GI: Abdomen is round non-distended. : No signs and/or symptoms were reported regarding the genitourinary system. EENT: No signs and/or symptoms were reported regarding the EENT system. Derm: No signs and/or symptoms reported regarding the dermatologic system. Musculoskeletal: No signs and/or symptoms reported regarding the musculoskeletal system. 22:03 Reassessment: Pt requesting to elope - does not want to stay. Notified ERP. Pt ld1 demanding IV be taken out, "My grandma is on the way and I want to go home." Told patient to stay for results - pt denied staying. Patient denies pain at this time. Vital Signs: 20:04 BP 137 / 105; Pulse 108; Resp 18; Temp 98.6(O); Pulse Ox 98% on R/A; Weight 149.69 kg ll3 (R); Height 5 ft. 11 in. (180.34 cm) (R); Pain 0/10; 22:03 BP 129 / 99; Pulse 101; Resp 18; Pulse Ox 100% on R/A; ld1 20:04 Body Mass Index 46.03 (149.69 kg, 180.34 cm) ll3 ED Course: 19:45 Patient arrived in ED. tw5 19:52 Tamie Sousa MD is Attending Physician. sp3 20:07 Triage completed. ll3 20:07 Arm band placed on Patient placed in an exam room, on a stretcher, on pulse oximetry. ll3 20:23 Keyona Dumont, SELENA is Primary Nurse. ld1 20:49 Urine Drug Screen Sent. ll3 20:52 Inserted saline lock: 20 gauge in right forearm, using aseptic technique. Blood zm collected. 20:53 Acetaminophen Sent. zm 20:53 Basic Metabolic Panel Sent. zm 20:53 CBC with Diff Sent. zm 20:53 ETOH Level Sent. zm 20:53 Hepatic Function Sent. zm 20:53 PT-INR Sent. zm 20:53 Ptt, Activated Sent. zm 20:53 Salicylate Sent. zm 22:03 Patient has correct armband on for positive identification. Placed in gown. Bed in low ld1 position. Call light in reach. Side rails up X2. hospital monitor on. Pulse ox on. NIBP on. Door closed. Noise minimized. Warm blanket given. 22:03 No provider procedures requiring assistance completed. IV discontinued, intact, ld1 bleeding controlled, No redness/swelling at site. Administered Medications: No medications were administered Medication: 22:03 VIS not applicable for this client. ld1 Outcome: 22:05 AMA AMA form signed ld1 22:05 Condition: unchanged 22:06 Patient left the ED. ld1 Signatures: Keyona Dumont, SELENA RN ld1 Tamie Sousa MD MD sp3 Fani Rojo tw5 Carli Gerber RN RN ll3 Danni Rawls
[2022-02-26 22:26] VITALS: TEMP 98.6
[2022-02-26 22:32] VITALS: BP 129/99; O2SAT 100
== END 2022-02-26 22:06 | disposition left against medical advice (07) ==
LOC: ER 19:43
DX: F20.9 Schizophrenia, unspecified (principal)
CPT/HCPCS: 36415; 80048; 80076; 80307; 80320; 80329; 81003; 85025; 85610; 85730; 99284